=== PATIENT | male | born 1945 | race Caucasian/White ===

== ENCOUNTER 2019-04-09 19:30 | Outpatient (CLI) | payer MEDICARE, OTHER | END 2019-04-09 19:31 | disposition home or self-care (01) | LOC: SLEEPLAB 19:30 | PROVIDERS: ATTEND Specialist | DX: G47.10 Hypersomnia, unspecified (principal); R53.83 Other fatigue; G47.33 Obstructive sleep apnea (adult) (pediatric); G47.31 Primary central sleep apnea | CPT/HCPCS: 95811 ==

== ENCOUNTER 2019-05-01 19:30 | Outpatient (CLI) | payer MEDICARE, OTHER | END 2019-05-01 19:31 | disposition home or self-care (01) | LOC: SLEEPLAB 19:30 | PROVIDERS: ATTEND Specialist | DX: G47.10 Hypersomnia, unspecified (principal); R53.83 Other fatigue; G47.33 Obstructive sleep apnea (adult) (pediatric) | CPT/HCPCS: 95811 ==

== ENCOUNTER 2019-12-13 13:37 | Emergency (ER) | payer MEDICARE, OTHER ==
[2019-12-14 12:07] LABS: SARS-CoV-2 MS2 Positive; SARS-CoV-2 N Gene Negative; SARS-CoV-2 S Gene Negative; SARS-CoV-2 by NAA Not Detected (NotDetected); SARS-CoV-2 orf1ab Negative
== END 2019-12-13 14:15 | disposition home or self-care (01) ==
LOC: ERS 13:37
DX: Z20.828 Contact with and (suspected) exposure to other viral communicable diseases (principal); E78.5 Hyperlipidemia, unspecified; E78.00 Pure hypercholesterolemia, unspecified; I10 Essential (primary) hypertension; K21.9 Gastro-esophageal reflux disease without esophagitis; Z79.899 Other long term (current) drug therapy
CPT/HCPCS: 87635; 99283; U0003

== ENCOUNTER 2020-03-25 10:40 | Outpatient (CLI) | payer MEDICARE, OTHER ==
--- NOTE | 2020-03-25 11:11 | RAD ---
XR Lumbar Spine 2 Or 3 View History: Low back pain Comparison: None. Findings: No acute fracture or malalignment. Bridging anterior osteophytes lumbar spine. Moderate L4/L5 interspace narrowing with cortical sclerosis. No significant listhesis. Mild degenerative disc space height loss from L2-L5. No abnormal calcifications of the bilateral paraspinal soft tissues. No bowel dilatation. Impression: Moderate spondylosis. No acute osseous abnormality.
--- NOTE | 2020-03-25 11:20 | RAD ---
EXAM: XR Sacroiliac Joints >=3 View DATE: 03/25/2020 10:45 AM INDICATION: SI joint pain COMPARISON: None. FINDING: The subchondral bone plate of the SI joints are preserved bilaterally. There is very mild d egenerative change involving the SI joints consistent with small marginal osteophytes and subchondral sclerosis along the subchondral margins of the joint space. There is mild degenerative ar throsis of the visualized hips. Small phleboliths are seen within the lower pelvis. 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
== END 2020-03-25 10:41 | disposition home or self-care (01) ==
LOC: BICRAD 10:40
PROVIDERS: ATTEND Specialist
DX: M54.5 Low back pain (principal); M25.559 Pain in unspecified hip; M47.898 Other spondylosis, sacral and sacrococcygeal region; M47.816 Spondylosis without myelopathy or radiculopathy, lumbar region
CPT/HCPCS: 72100; 72202

== ENCOUNTER 2021-01-05 10:19 | Outpatient (CLI) | payer MEDICARE, OTHER | END 2021-01-05 10:20 | disposition home or self-care (01) | LOC: BICRAD 10:19 | PROVIDERS: ATTEND Specialist | DX: M25.562 Pain in left knee (principal); M17.12 Unilateral primary osteoarthritis, left knee; M25.462 Effusion, left knee ==

== ENCOUNTER 2023-03-31 11:04 | Outpatient (CLI) | payer MEDICARE, OTHER | END 2023-03-31 11:05 | disposition home or self-care (01) | LOC: BICRAD 11:04 | PROVIDERS: ATTEND Specialist | DX: M25.511 Pain in right shoulder (principal); M19.011 Primary osteoarthritis, right shoulder ==

== ENCOUNTER 2023-04-28 09:25 | Outpatient (CLI) | payer MEDICARE, OTHER | END 2023-04-28 09:26 | disposition home or self-care (01) | LOC: SCSMRI 09:25 | PROVIDERS: ATTEND Specialist | DX: M25.511 Pain in right shoulder (principal); M19.011 Primary osteoarthritis, right shoulder; M75.111 Incomplete rotator cuff tear or rupture of right shoulder, not specified as traumatic ==